=== PATIENT | female | born 1995 | race Caucasian/White ===

== ENCOUNTER 2017-07-10 18:40 | Emergency (ER) | payer MEDICAID ==
[~2017-07-10] VITALS: Ht 157.5 cm; Wt 45.3 kg
[2017-07-10] MEDS ORDERED: NO HOME MEDICATION XX (19:37)
[2017-07-10 21:27] LABS: URINE BILIRUBIN NEGATIVE (NEG); URINE BLOOD NEGATIVE (NEG); URINE GLUCOSE (UA) NEGATIVE (NEG); URINE KETONE NEGATIVE (NEG); URINE LEUKOCYTE ESTERASE NEGATIVE (NEG); URINE NITRITE NEGATIVE (NEG); URINE PROTEIN NEGATIVE (NEG)
[2017-07-10 21:28] LABS: URINE APPEARANCE CLEAR; URINE COLOR YELLOW
== END 2017-07-10 21:39 ==
LOC: EDMED 18:40
PROVIDERS: Physician Assistant
PROC: BY49ZZZ Ultrasonography of First Trimester, Single Fetus (ICD-10-PCS; principal; 2017-07-10)
DX: O20.0 Threatened abortion (principal); Z3A.01 Less than 8 weeks gestation of pregnancy; Z98.890 Other specified postprocedural states